=== PATIENT | female | born 1980 | race Caucasian/White ===

== ENCOUNTER 2020-02-01 10:24 | Emergency (ER) | payer OTHER ==
[2020-02-01] MEDS ORDERED: diphenhydrAMINE 25 MG Cap PO ONE (10:45)
--- NOTE | 2020-02-01 10:45 | EDM.PDOC ---
ED HPI GENERAL MEDICAL PROBLEM - General Chief Complaint: Allergic Reaction Stated Complaint: BEE STINGS Time Seen by Provider: 02/01/20 10:36 Source of Information: Reports: Patient History Limitations: Reports: No Limitations - History of Present Illness INITIAL COMMENTS - FREE TEXT/NARRATIVE: Patient presents for evaluation of itching after being stung by a bee approximately 1000 hrs. this morning. She has a history of previous moderately sounding severe reactions in the past. She thinks her last sting episode was a couple years ago. She is in the [facility]. As a result of a previous visit, she was given a prescription for an EpiPen. While preparing the EpiPen today because of how she felt, she inadvertently injected her right thumb. She did not attempt and administration of an additional dose into her thigh but came here for further evaluation. She does not have nor has taken any Benadryl or similar antihistamine since the episode happened. With previous episodes, she was given prednisone. At this time, she states her breathing is normal, she has no feeling of swelling in the mouth. She has a generalized itching feeling and there is redness at the sting site in her left calf. 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: Other Medication(s) (Adult EpiPen dose (0.3 mg) but inadvertently injected in her thumb.) - Related Data Allergies Allergy/AdvReac Type Severity Reaction Status Date / Time bee venom protein (honey bee) Allergy Numbness Verified 02/01/20 10:38 Home Meds: Home Meds L.acidoph,Paracasei, B.lactis [Probiotic] 1 cap PO DAILY 02/01/20 [History] Omeprazole 20 mg PO DAILY 02/01/20 [History] ED ROS ALLERGIC REACTION - Review of Systems Review Of Systems: See Below HEENT: Denies: Throat Pain, Throat Swelling Respiratory: Denies: Shortness of Breath, Wheezing, Cough Skin: Reports: Pruritis, Erythema (Left calf region.). Denies: Urticaria Neurological: Reports: No Symptoms ED EXAM GENERAL NO PERIP PULSE - Physical Exam Exam: See Below Text/Narrative:: This is an adult female sitting on the cart in room 4, she repeatedly scratches many parts of her body during our conversation. She is in no respiratory distress. Exam Limited By: No Limitations General Appearance: Alert, No Apparent Distress Throat/Mouth: Normal Inspection, Normal Oropharynx Neck: Normal Inspection Respiratory/Chest: Lungs Clear. No: Wheezing Cardiovascular: Regular Rate, Rhythm Extremities: Redness (At sting site in the midportion of the left calf.) Skin Exam: Other (No urticarial lesions.) Course - Vital Signs Last Recorded V/S: Last Vital Signs Temp 36.9 C 02/01/20 10:42 Pulse 98 02/01/20 10:42 Resp 15 02/01/20 10:42 BP 124/74 02/01/20 10:42 Pulse Ox 97 02/01/20 10:42 - Orders/Labs/Meds Meds: Medications Discontinued Medications Generic Name Dose Route Start Last Admin Trade Name Freq PRN Reason Stop Dose Admin Diphenhydramine HCl 50 mg 02/01/20 10:45 02/01/20 10:52 Benadryl PO 02/01/20 10:46 50 mg ONETIME ONE Administration Famotidine 20 mg 02/01/20 10:46 02/01/20 10:53 Pepcid PO 02/01/20 10:47 20 mg ONETIME ONE Administration Prednisone 40 mg 02/01/20 10:46 02/01/20 10:52 Prednisone PO 02/01/20 10:47 40 mg ONETIME ONE Administration - Re-Assessments/Exams Free Text/Narrative Re-Assessment/Exam: 02/01/20 10:53 At this time, I do not believe she needs an additional epinephrine dose. She will be given Benadryl 50 mg, Pepcid 20 mg, both as oral doses and prednisone 40 mg. She will need to be observed for 1 to 2 hours to make sure that her symptoms are improving. I briefly discussed the need to always have antihistamines with her, stored with her EpiPens. We will review again later in her visit. 02/01/20 11:49 1143 hrs., patient still has some itching. She has not sleepy. She is not short of breath or having trouble swallowing. Discussed the differences and duration of action of epinephrine, antihistamines, prednisone. Her EpiPen likely is far- anyway and did not give her any useful therapeutic effect because the fluid was dark-colored. She will be sent with a new prescription for an EpiPen twin pack today. We discussed principles of allergic reaction treatment and detail. I will check on her again in a while and if symptoms are still stable, she will be able to be discharged. 02/01/20 12:34 At recheck again, itching is better and she does not have any respiratory or throat symptoms. We reviewed medication plan for the next few days. Again if feeling worse in any way, return here. Departure - Departure Time of Disposition: 12:35 Disposition: Home, Self-Care 01 Clinical Impression: Itching Sting from hornet, wasp, or bee Qualifiers: Encounter type: initial encounter Injury intent: accidental or unintentional Qualified Code(s): T63.451A - Toxic effect of venom of hornets, accidental (unintentional), initial encounter Irritation of injection site Qualifiers: Encounter type: initial encounter Qualified Code(s): T80.89XA - Other complications following infusion, transfusion and therapeutic injection, initial encounter - Discharge Information Referrals: PCP,None [Primary Care Provider] - Forms: ED Department Discharge Additional Instructions: Get a new EpiPen set. Remember that if used, its purpose is to keep you stable until you can come to an emergency department. Anytime you use an EpiPen, you should take 25 or 50 mg of Benadryl and 20 mg of Pepcid. Benadryl and Pepcid should be taken regularly for 3 days as described for any reaction. You should keep a supply of both of those medications in places you commonly find yourself. You are being sent also with a prescription for 4 more days of prednisone 40 mg although you don't need to take the next prednisone dose until tomorrow. If feeling worse in any way, return to emergency department at any time but you can use your EpiPen prior to heading this direction. Be cautious of the injector tip and stab it into the outside of a thigh and hold it in place for at least 10 seconds so all of the medication can be dispensed. Sepsis Event Note (ED) - Focused Exam Vital Signs: Vital Signs Temp Pulse Resp BP Pulse Ox 02/01/20 10:42 36.9 C 98 15 124/74 97 02/01/20 10:37 36.9 C 98 15 124/74 97
[2020-02-01] MEDS ORDERED: Famotidine 20 MG Tab PO ONE (10:46)
[2020-02-01] MEDS ORDERED: predniSONE 20 MG Tab PO ONE (10:46)
== END 2020-02-01 13:05 | disposition home or self-care (01) ==
LOC: JP.ED 10:24
DX: T63.441A Toxic effect of venom of bees, accidental (unintentional), initial encounter (principal); Z91.030 Bee allergy status; Z79.899 Other long term (current) drug therapy
CPT/HCPCS: 99282; A9270; J7512